=== PATIENT | male | born 1990 | race Caucasian/White ===

== ENCOUNTER 2016-11-21 23:35 | Emergency (ER) | payer BC ==
[2016-11-21 23:46] VITALS: TEMP 98.7
[2016-11-22] MEDS ORDERED: ONDANSETRON 4 MG/2 ML VIAL IVP STA ×2 (00:10→03:40)
[2016-11-22] MEDS ORDERED: LORazepam 2 MG/ML SYRINGE IV STA ×2 (00:10→03:40)
[2016-11-22 01:15] LABS: ALT 54 U/L (21-72); AST 39 U/L (17-59); Alkaline Phosphatase 100 U/L (38-126); Anion Gap 25 mmol/L; Blood Urea Nitrogen 18 mg/dL (9-20); Calcium 11.8 mg/dL (8.4-10.2); Carbon Dioxide 22 mmol/L (22-30); Chloride 96 mmol/L (98-107); Glucose 119 mg/dL (74-99); Non-African American GFR(MDRD) >60 (>60 ml/min/1.73 sqM); Potassium 4.5 mmol/L (3.5-5.1); Sodium 143 mmol/L (137-145); Total Bilirubin 2.6 mg/dL (0.2-1.3)
[2016-11-22 01:27] LABS: CH 30.3; CHCM 35.9; HCT 54.7 % (39.0-53.0); HDW 2.73; HGB 19.1 gm/dL (13.0-17.5); MCH 29.6 pg (25.0-35.0); MCHC 34.9 g/dL (31.0-37.0); MCV 84.7 fL (80.0-100.0); Mean Platelet Volume 7.1; RBC 6.46 m/uL (4.30-5.90); RDW 12.6 % (11.5-15.5); WBC (Perox) 12.47
[2016-11-22 01:28] LABS: Total Protein 12.2 g/dL (6.3-8.2)
[2016-11-22] MEDS ORDERED: SODIUM CHLORIDE 0.9% 2,000 ML IV ONE (01:28)
[2016-11-22 01:42] LABS: Add Differential Manual Differential
[2016-11-22 01:44] LABS: Manual Review Performed; Nucleated Red Blood Cells 0 /100 WBC (0-0); Total Cells Counted 100
[2016-11-22 01:45] LABS: RBC Morphology Normal
[2016-11-22] MEDS ORDERED: SODIUM CHLORIDE 0.9% 500 ML IV STA (01:52)
--- NOTE | 2016-11-22 02:13 | CT ---
EXAM: CT Head Without Intravenous Contrast. CLINICAL HISTORY: Reason: altered mental status TECHNIQUE: Axial computed tomography images of the head/brain without intravenous contrast. CTDI is 60 3. MGy and DLP is 1126.50 mGy-cm COMPARISON: None FINDINGS: Brain: No acute infarct or hemorrhage. No extra-axial fluid collection. No mass effect or midline shift. Ventricles and sulci: Normal. No ventriculomegaly or intraventricular hemorrhage. Skull: Normal. No bony lesion or fracture. Subcutaneous tissues: Normal. Sinuses: Small amount of fluid versus mucosal thickening in the left glenoid sinus. Mastoid air cells: Normal. Orbits: Grossly unremarkable. IMPRESSION: No acute intracranial abnormality.
--- NOTE | 2016-11-22 02:26 | XR ---
EXAM: XR Chest, 1 View. CLINICAL HISTORY: Reason: altered mental status TECHNIQUE: Frontal view of the chest. COMPARISON: None FINDINGS: Hardware: None. Lungs/pleura: Normal. No focal consolidation. No pleural effusion or pneumothorax. Heart/mediastinum: Normal. No cardiomegaly. Soft tissues: Unremarkable. Bones: No acute fracture. Upper abdomen: Normal. IMPRESSION: No acute disease.
[2016-11-22 03:02] LABS: Glucose,Whole Blood 91 mg/dL (75-99)
[2016-11-22 03:27] VITALS: BP 155/89; RESP 14
[2016-11-22 03:33] LABS: Appearance,Urine Clear (Clear); Bilirubin,Urine Negative (Negative); Glucose,Urine (UA) Negative (Negative); Ketones,Urine 2+ (Negative); Leukocyte Esterase,Urine Negative (Negative); Mucus,Urine Occasional /hpf; Nitrite,Urine Negative (Negative); PH, Urine 8.5 (5.0-8.0); Particle Count 4671; Protein,Urine 1+ (Negative); RBC,Urine <1 /hpf (0-5); Specific Gravity,Urine 1.022 (1.001-1.035); Squamous Epithelial Cell,Urine <1 /hpf (0-4); UA Billing (MACRO vs. MICRO) MICRO
[2016-11-22 03:49] VITALS: PULSE 64
--- NOTE | 2016-11-22 03:56 | ED ---
Nausea/Vomiting/Diarrhea HPI - General Chief complaint: Abdominal Pain Stated complaint: Heroin Withdrawl (4 days) Time Seen by Provider: 11/22/16 00:04 Source: patient Mode of arrival: ambulatory Limitations: no limitations - History of Present Illness Initial comments: This patient is a 26-year-old man at to be evaluated for nausea, vomiting, and mental status changes. History initially was from the patient's mother who states she was concerned because the patient was having a lot of vomiting, including some clear yellow vomiting. She then noticed that the patient was talking but not necessarily making sense, making references to having put his medication and the oven at one point. The patient initially was disoriented, however after arousing the patient he was able to state who he was, where he was at, and to give his complaint as vomiting and withdrawal. Patient notes that he had run out of his benzodiazepine medication. MD complaint: nausea, vomiting, other Onset/Timin -: days(s) Description of Vomiting: watery Associated Abdominal Pain: No Improves with: none Worsens with: none - Related Data Home Medications Medication Instructions Recorded Confirmed clonazePAM [Clonazepam] 1 mg PO TID 01/21/16 11/21/16 QUEtiapine [SEROquel] 1 tab PO HS 03/24/16 11/21/16 Previous Rx's Medication Instructions Recorded cloNIDine HCL [Catapres] 0.1 mg PO BID #20 tab 03/24/16 Allergies Allergy/AdvReac Type Severity Reaction Status Date / Time Penicillins Allergy Rash/Hives Verified 11/21/16 23:46 Review of Systems ROS Statement: Those systems with pertinent positive or pertinent negative responses have been documented in the HPI. ROS Other: All systems not noted in ROS Statement are negative. Limitations: ROS unobtainable due to patients medical condition Constitutional: Reports: weakness. Denies: fever, chills Eyes: Denies: vision change Respiratory: Denies: cough, dyspnea Cardiovascular: Denies: chest pain Gastrointestinal: Reports: nausea, vomiting, diarrhea. Denies: abdominal pain Genitourinary: Denies: dysuria Musculoskeletal: Denies: back pain Skin: Denies: rash Neurological: Reports: weakness. Denies: headache Past Medical History Additional Past Medical History / Comment(s): elevated liver enzymes, migraines History of Any Multi-Drug Resistant Organisms: None Reported Past Surgical History: Adenoidectomy, Tonsillectomy Additional Past Surgical History / Comment(s): sinus sx Past Psychological History: Anxiety, Depression Smoking Status: Current every day smoker Past Alcohol Use History: None Reported Past Drug Use History: None Reported General Exam Limitations: no limitations General appearance: obtunded Head exam: Present: atraumatic, normocephalic Eye exam: Present: normal appearance. Absent: scleral icterus, conjunctival injection ENT exam: Present: mucous membranes dry Neck exam: Present: normal inspection Respiratory exam: Present: normal lung sounds bilaterally. Absent: respiratory distress, wheezes, rales, rhonchi Cardiovascular Exam: Present: regular rate, normal rhythm, normal heart sounds. Absent: systolic murmur, diastolic murmur, rubs, gallop GI/Abdominal exam: Present: soft, hypoactive bowel sounds. Absent: distended, tenderness, guarding, rebound, mass Extremities exam: Present: normal inspection, normal capillary refill. Absent: pedal edema, calf tenderness Back exam: Present: normal inspection. Absent: CVA tenderness (R), CVA tenderness (L) Neurological exam: Present: altered, oriented X3, CN II-XII intact. Absent: motor sensory deficit Skin exam: Present: warm, dry, intact, pallor. Absent: rash Course Vital Signs 11/21/16 11/22/16 11/22/16 23:39 03:26 03:48 Temperature 98.7 F Pulse Rate 69 62 64 Respiratory 16 14 14 Rate Blood Pressure 153/92 155/89 O2 Sat by Pulse 100 99 100 Oximetry Procedures - Sepsis Sepsis Focused Exam #1 Capillary Refill: < 2 Seconds: Fingers Peripheral Pulses: Normal: Radial (R) Skin Color: Normal for Patient Respiratory Exam: normal lung sounds Cardiovascular Exam: regular rate, normal rhythm Medical Decision Making - Medical Decision Making Subsequent to the initial history and physical, I did have private conversations with the patient and he admitted to having a relapse of his substance use. He stated that he had used heroin because a friend of his had. Patient also admits to having smoked some cocaine. He did state that he now feels that he needs to go into a rehab, and that he has looked into this. He was denying any complaints after he received IV fluids and the antiemetics. We discussed that he should return here if he should have any further difficulty. He does contract for safety and is not having any suicidal ideation at the moment. - Lab Data Result diagrams: 11/22/16 00:56 11/22/16 00:56 Lab Results 11/22/16 11/22/16 11/22/16 Range/Units 00:56 00:56 00:56 WBC 12.0 H (3.8-10.6) k/uL RBC 6.46 H (4.30-5.90) m/uL Hgb 19.1 H (13.0-17.5) gm/dL Hct 54.7 H (39.0-53.0) % MCV 84.7 (80.0-100.0) fL MCH 29.6 (25.0-35.0) pg MCHC 34.9 (31.0-37.0) g/dL RDW 12.6 (11.5-15.5) % Plt Count 471 H (150-450) k/uL Neutrophils % (Manual) 89.0 % Lymphocytes % (Manual) 5.0 % Monocytes % (Manual) 6.0 % Neutrophils # (Manual) 10.7 H (1.3-7.7) k/uL Lymphocytes # (Manual) 0.6 L (1.0-4.8) k/uL Monocytes # (Manual) 0.7 (0-1.0) k/uL Nucleated RBCs 0 (0-0) /100 WBC Manual Slide Review Performed RBC Morphology Normal Sodium 143 (137-145) mmol/L Potassium 4.5 (3.5-5.1) mmol/L Chloride 96 L (98-107) mmol/L Carbon Dioxide 22 (22-30) mmol/L Anion Gap 25 mmol/L BUN 18 (9-20) mg/dL Creatinine 1.07 (0.66-1.25) mg/dL Est GFR (MDRD) Af Amer >60 (>60 ml/min/1.73 sqM) Est GFR (MDRD) Non-Af >60 (>60 ml/min/1.73 sqM) Glucose 119 H (74-99) mg/dL POC Glucose (mg/dL) (75-99) mg/dL POC Glu Gallery Host ID Plasma Lactic Acid Zacarias 3.3 H* (0.7-2.0) mmol/L Calcium 11.8 H (8.4-10.2) mg/dL Total Bilirubin 2.6 H (0.2-1.3) mg/dL AST 39 (17-59) U/L ALT 54 (21-72) U/L Alkaline Phosphatase 100 (38-126) U/L Total Protein 12.2 H (6.3-8.2) g/dL Albumin 5.9 H (3.5-5.0) g/dL Urine Color Urine Appearance (Clear) Urine pH (5.0-8.0) Ur Specific [place] (1.001-1.035) Urine Protein (Negative) Urine Glucose (UA) (Negative) Urine Ketones (Negative) Urine Blood (Negative) Urine Nitrite (Negative) Urine Bilirubin (Negative) Urine Urobilinogen (<2.0) mg/dL Ur Leukocyte Esterase (Negative) Urine RBC (0-5) /hpf Ur Squamous Epith Cells (0-4) /hpf Urine Mucus (None) /hpf Urine Opiates Screen (NotDetected) Ur Oxycodone Screen (NotDetected) Urine Methadone Screen (NotDetected) Ur Propoxyphene Screen (NotDetected) Ur Barbiturates Screen (NotDetected) U Tricyclic Antidepress (NotDetected) Ur Phencyclidine Scrn (NotDetected) Ur Amphetamines Screen (NotDetected) U Methamphetamines Scrn (NotDetected) U Benzodiazepines Scrn (NotDetected) Urine Cocaine Screen (NotDetected) U Marijuana (THC) Screen (NotDetected) 11/22/16 11/22/16 11/22/16 Range/Units 02:59 03:10 03:10 WBC (3.8-10.6) k/uL RBC (4.30-5.90) m/uL Hgb (13.0-17.5) gm/dL Hct (39.0-53.0) % MCV (80.0-100.0) fL MCH (25.0-35.0) pg MCHC (31.0-37.0) g/dL RDW (11.5-15.5) % Plt Count (150-450) k/uL Neutrophils % (Manual) % Lymphocytes % (Manual) % Monocytes % (Manual) % Neutrophils # (Manual) (1.3-7.7) k/uL Lymphocytes # (Manual) (1.0-4.8) k/uL Monocytes # (Manual) (0-1.0) k/uL Nucleated RBCs (0-0) /100 WBC Manual Slide Review RBC Morphology Sodium (137-145) mmol/L Potassium (3.5-5.1) mmol/L Chloride (98-107) mmol/L Carbon Dioxide (22-30) mmol/L Anion Gap mmol/L BUN (9-20) mg/dL Creatinine (0.66-1.25) mg/dL Est GFR (MDRD) Af Amer (>60 ml/min/1.73 sqM) Est GFR (MDRD) Non-Af (>60 ml/min/1.73 sqM) Glucose (74-99) mg/dL POC Glucose (mg/dL) 91 (75-99) mg/dL POC Glu Gallery Host ID Plasma Lactic Acid [place] 1.0 (0.7-2.0) mmol/L Calcium (8.4-10.2) mg/dL Total Bilirubin (0.2-1.3) mg/dL AST (17-59) U/L ALT (21-72) U/L Alkaline Phosphatase (38-126) U/L Total Protein (6.3-8.2) g/dL Albumin (3.5-5.0) g/dL Urine Color Yellow Urine Appearance Clear (Clear) Urine pH 8.5 H (5.0-8.0) Ur Specific [place] 1.022 (1.001-1.035) Urine Protein 1+ H (Negative) Urine Glucose (UA) Negative (Negative) Urine Ketones 2+ H (Negative) Urine Blood Negative (Negative) Urine Nitrite Negative (Negative) Urine Bilirubin Negative (Negative) Urine Urobilinogen 2.0 (<2.0) mg/dL Ur Leukocyte Esterase Negative (Negative) Urine RBC <1 (0-5) /hpf Ur Squamous Epith Cells <1 (0-4) /hpf Urine Mucus Occasional H (None) /hpf Urine Opiates Screen Detected H (NotDetected) Ur Oxycodone Screen Not Detected (NotDetected) Urine Methadone Screen Not Detected (NotDetected) Ur Propoxyphene Screen Not Detected (NotDetected) Ur Barbiturates Screen Not Detected (NotDetected) U Tricyclic Antidepress Detected H (NotDetected) Ur Phencyclidine Scrn Not Detected (NotDetected) Ur Amphetamines Screen Not Detected (NotDetected) U Methamphetamines Scrn Not Detected (NotDetected) U Benzodiazepines Scrn Detected H (NotDetected) Urine Cocaine Screen Detected H (NotDetected) U Marijuana (THC) Screen Detected H (NotDetected) - EKG Data EKG shows normal: sinus rhythm, axis (Normal), intervals (Prolonged QT), QRS complexes (Normal) Rate: normal (Rate 69 bpm) When compared to previous EKG there are: other Disposition Clinical Impression: Withdrawal from opioids, Withdrawal from benzodiazepine, Dehydration Disposition: HOME SELF-CARE Condition: Fair Instructions: Dehydration (ED), Opioid Withdrawal (ED) Referrals: Kirby Ozuna MD [Primary Care Provider] - 1-2 days
== END 2016-11-22 04:33 | disposition home or self-care (01) ==
LOC: EC 23:35
DX: F11.23 Opioid dependence with withdrawal (principal); F13.230 Sedative, hypnotic or anxiolytic dependence with withdrawal, uncomplicated; E86.0 Dehydration; F41.9 Anxiety disorder, unspecified; F32.9 Major depressive disorder, single episode, unspecified; F17.200 Nicotine dependence, unspecified, uncomplicated; Z79.899 Other long term (current) drug therapy; Z88.0 Allergy status to penicillin
CPT/HCPCS: 96376 ×3; 96361 ×2; 96374 ×2; 96375 ×2; 99284 ×2; 36415; 93005; 80053; 83605; 85025; 81001; 87040; 80306; 71010; 70450; J2060; J2405

== ENCOUNTER 2016-11-22 15:10 | Emergency (ER) | payer BC ==
[2016-11-22 15:20] VITALS: RESP 18
[2016-11-22] MEDS ORDERED: ONDANSETRON ODT 4 MG TAB PO STA (15:59)
[2016-11-22] MEDS ORDERED: DICYCLOMINE 10 MG/ML 2 ML AMP IM STA (16:00)
[2016-11-22] MEDS ORDERED: cloNIDine 0.2 MG/24HR PATCH 1 PATCH PATCH TRANSDERM SCH (16:00)
--- NOTE | 2016-11-22 16:07 | ED ---
General Adult HPI - General Chief complaint: Recheck/Abnormal Lab/Rx Stated complaint: Withdrawls Time Seen by Provider: 11/22/16 15:49 Source: patient Mode of arrival: EMS Limitations: no limitations - History of Present Illness Initial comments: Patient is a 26-year-old male presenting with heroin withdrawal. Per mom she suspects that patient last used 4-5 days ago. Patient states he does not know the last time he used heroin. Patient was seen yesterday for nausea and vomiting with mental status changes. Patient continues to vomit yellow/clear vomitus. Patient was discharged yesterday in stable condition. Mother states patient continues to vomiting since discharge. She tried Dramamine without relief. - Related Data Home Medications Medication Instructions Recorded Confirmed ALPRAZolam [Xanax] 1 mg PO BID@0700,1200 11/22/16 11/22/16 ALPRAZolam [Xanax] 1.5 mg PO HS 11/22/16 11/22/16 Dextroamphetamine/Amphetamine 30 mg PO BID 11/22/16 11/22/16 [Adderall] FLUoxetine HCL [PROzac] 10 mg PO DAILY 11/22/16 11/22/16 FLUoxetine HCL [PROzac] 20 mg PO DAILY 11/22/16 11/22/16 QUEtiapine [SEROquel] 50 mg PO HS 11/22/16 11/22/16 QUEtiapine [SEROquel] 100 mg PO HS 11/22/16 11/22/16 Previous Rx's Medication Instructions Recorded Dicyclomine [Bentyl] 20 mg PO QID #20 tablet 11/22/16 Naloxone [Narcan] 2 mg IJ ONCE #1 syringe 11/22/16 Ondansetron [Zofran ODT] 4 mg PO Q8HR #14 tab 11/22/16 Allergies Allergy/AdvReac Type Severity Reaction Status Date / Time Penicillins Allergy Rash/Hives Verified 11/22/16 15:51 Review of Systems ROS Statement: Those systems with pertinent positive or pertinent negative responses have been documented in the HPI. Constitutional: No fever and no chills. + Bodyaches HENT: No congestion, +rhinorrhea and no sore throat. Eyes: No discharge and no redness. Respiratory: No cough and no shortness of breath. Cardiovascular: No chest pain and no palpitations. Gastrointestinal: +nausea, +vomiting, +abdominal pain and no diarrhea. Genitourinary: No dysuria and no hematuria. Musculoskeletal: No back pain and no arthralgias. Skin: No pallor and no rash. Neurological: No dizziness and No headaches. ROS Other: All systems not noted in ROS Statement are negative. Past Medical History Additional Past Medical History / Comment(s): elevated liver enzymes, migraines History of Any Multi-Drug Resistant Organisms: None Reported Past Surgical History: Adenoidectomy, Tonsillectomy Additional Past Surgical History / Comment(s): sinus sx Past Psychological History: Anxiety, Depression Smoking Status: Current every day smoker Past Alcohol Use History: None Reported Past Drug Use History: Cocaine, Heroin, Marijuana General Exam - General Exam Comments Initial Comments: Constitutional: Patient appears well-developed and well-nourished. Moderate distress. Head: Normocephalic and atraumatic. Eyes: Conjunctivae and EOM are normal. Right eye exhibits no discharge. Left eye exhibits no discharge. No scleral icterus. Neck: Normal range of motion. Neck supple. Cardiovascular: Normal rate and regular rhythm. No murmur heard. Pulmonary/Chest: Effort normal and breath sounds normal. No respiratory distress. No wheezes. Abdominal: Soft. No distension. There is no tenderness. There is no rebound and no guarding. Musculoskeletal: Normal range of motion. No edema or tenderness. Neurological: Patient alert and oriented to person, place, and time. Skin: Skin is warm and dry. Not diaphoretic. Nursing notes and vitals reviewed. Limitations: no limitations Course Vital Signs 11/22/16 11/22/16 11/22/16 15:16 16:39 17:46 Temperature 97.9 F 98.6 F 98.0 F Pulse Rate 63 57 L 61 Respiratory 18 18 18 Rate Blood Pressure 132/74 146/69 150/85 O2 Sat by Pulse 99 98 100 Oximetry - Reevaluation(s) Reevaluation #1: Patient medicated and later feeling better. No further vomiting. Patient appears in no distress. Medical Decision Making - Medical Decision Making Patient is a 26-year-old presenting with heroin withdrawal. Patient states he last injected 4 days ago. Patient was seen last night and hydrated up do to dehydration. Patient was given clonidine patch, Zofran, Bentyl improvement of symptoms. Patient was discharged with a Zofran ODT pack, prescription for Zofran, Narcan autoinjector, and Bentyl. Instructed patient and mother to use the Zofran every 8 hours and no more. Instructed patient to follow-up with Narcotics Anonymous and substance abuse counseling. Prior to discharge, patient was resting comfortably in bed. Course of stay improved. Denies pain. Discussed physical exam and diagnostic tests with patient. Questions answered and patient is agreeable to discharge with close follow up with Primary Care Physician. Instructed to return to Emergency Department if symptoms worsen. Disposition Clinical Impression: Opiate addiction, Nausea & vomiting Disposition: HOME SELF-CARE Condition: Good Instructions: Narcotic Abuse (ED) Prescriptions: Ondansetron [Zofran ODT] 4 mg PO Q8HR #14 tab Dicyclomine [Bentyl] 20 mg PO QID #20 tablet Naloxone [Narcan] 2 mg IJ ONCE #1 syringe Referrals: Kirby Ozuna MD [Primary Care Provider] - 1-2 days
[2016-11-22] MEDS ORDERED: ONDANSETRON 4 MG ODT STARTER PACK 2 TAB BTL PO STA (17:40)
[2016-11-22 17:47] VITALS: BP 150/85; PULSE 61; TEMP 98
== END 2016-11-22 17:51 | disposition home or self-care (01) ==
LOC: EC 15:10
DX: F11.20 Opioid dependence, uncomplicated (principal); R11.2 Nausea with vomiting, unspecified; F32.9 Major depressive disorder, single episode, unspecified; F41.9 Anxiety disorder, unspecified; F17.200 Nicotine dependence, unspecified, uncomplicated; Z79.899 Other long term (current) drug therapy; Z88.0 Allergy status to penicillin
CPT/HCPCS: 99284; 96372; J0500; S0119

== ENCOUNTER 2017-03-10 01:12 | Emergency (ER) | payer OTHER ==
[2017-03-10] MEDS ORDERED: DIPH,PERTUS(ACELL)TETVAC-LF 0.5 ML VIAL IM ONE (01:15)
[2017-03-10] MEDS ORDERED: SODIUM CHLORIDE 0.9% 1,000 ML IV STA (01:15)
[2017-03-10] MEDS ORDERED: fentaNYL (PF) 50 MCG/ML 2 ML AMP IV STA (01:16)
[2017-03-10 01:25] LABS: Glucose,Whole Blood 128 mg/dL (75-99)
[2017-03-10 01:45] LABS: Basophils % (A) 0 %; CHCM 34.9; Eosinophils # (A) 0.1 k/uL (0-0.7); Eosinophils % (A) 1 %; HCT 42.3 % (39.0-53.0); HDW 2.72; HGB 14.7 gm/dL (13.0-17.5); Luc % (Auto) 1; Lymphocytes # (A) 1.1 k/uL (1.0-4.8); Lymphocytes % (A) 10 %; MCH 30.9 pg (25.0-35.0); MCHC 34.6 g/dL (31.0-37.0); MCV 89.3 fL (80.0-100.0); Mean Platelet Volume 7.4; Monocytes # (A) 0.5 k/uL (0-1.0); Monocytes % (A) 5 %; Neutrophils % (A) 83 %; RBC 4.74 m/uL (4.30-5.90); RDW 13.2 % (11.5-15.5); WBC 10.8 k/uL (3.8-10.6); WBC (Perox) 9.96
[2017-03-10 01:52] LABS: ALT 62 U/L (21-72); AST 28 U/L (17-59); Alcohol <10 mg/dL; Alkaline Phosphatase 67 U/L (38-126); Amylase 55 U/L (30-110); Anion Gap 11 mmol/L; Blood Urea Nitrogen 14 mg/dL (9-20); Calcium 7.7 mg/dL (8.4-10.2); Carbon Dioxide 25 mmol/L (22-30); Chloride 107 mmol/L (98-107); Glucose 116 mg/dL (74-99); Non-African American GFR(MDRD) >60 (>60 ml/min/1.73 sqM); Potassium 3.7 mmol/L (3.5-5.1); Sodium 143 mmol/L (137-145); Total Bilirubin 0.3 mg/dL (0.2-1.3); Total Protein 6.5 g/dL (6.3-8.2)
[2017-03-10 01:55] LABS: INR 1.2 (<1.1); Partial Thromboplastin Time 25.9 sec (22.0-30.0)
[2017-03-10 02:04] LABS: Creatine Kinase 34 U/L (55-170)
[2017-03-10 02:17] LABS: Creatine Kinase MB <0.2 ng/mL (0.0-2.4); Troponin I <0.012 ng/mL (0.000-0.034)
--- NOTE | 2017-03-10 02:19 | XR ---
CXR 1 View INDICATION: trauma COMPARISON: Chest x-ray 11/22/16 FINDINGS: Single frontal view of the chest. The cardiac silhouette appears more prominent since prior examination, nonspecific. No evidence for focal consolidation. Haziness at the bilateral lung bases may be atelectasis. No evidence for pleural effusion. No definite evidence for pneumothorax. No evidence for acute displaced fractures. There are overlying leads. IMPRESSION: 1. No definite evidence for a pneumothorax or consolidation. 2. Cardiac silhouette appears more prominent since prior examination which may be related to technique.
--- NOTE | 2017-03-10 02:22 | XR ---
Pelvis 1 view INDICATION: Trauma. COMPARISON: None FINDINGS: No evidence for acute displaced fracture. Limited visualization of the sacrum due to bowel. Bone mineralization and joint spaces are preserved. IMPRESSION: No evidence for acute displaced fracture.
[2017-03-10 02:51] VITALS: RESP 18
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
--- NOTE | 2017-03-10 03:24 | CT ---
CT Head without contrast INDICATION: trauma TECHNIQUE: Multiple axial cuts of the brain are obtained from the posterior fossa to the cranial vault. Sagittal and coronal reformatted images provided. No IV contrast is administered. Radiation dose: CTDIvol: 57.4 mGy DLP: 1098.8 mGy-cm COMPARISON: none FINDINGS: There is a questionable ill defined 2 mm hyperdensity over the posterior left temporal lobe series 10 image 39. No definite evidence for acute intracranial hemorrhage, hydrocephalus, or herniation. The pascal white differentiation appears grossly intact. Left periorbital and frontal scalp soft tissue swelling. There is a 5 mm low attenuation focus in the inferior sella. No evidence of a depressed calvarial fracture. IMPRESSION: 1. Questionable ill defined 2 mm hyperdensity over the linen checker left temporal lobe. This may represent a small extra axial hematoma vs. artifact. Otherwise no evidence for acute intracranial hemorrhage, hydrocephalus, or herniation. 2. Suspicion for a 5 mm low attenuation focus in the inferior sella, nonspecific and may represent a rathke's cleft cyst. Further evaluation by an MRI of the pituitary gland may be helpful. CT Cervical spine without contrast INDICATION: Trauma TECHNIQUE: Multiple, contiguous axial cuts of the cervical spine are obtained from the skull base to the thoracic inlet. Sagittal and coronal reformatted images provided. No IV contrast is administered. Radiation dose: CTDIvol: 21.3 mGy DLP: 364.5 mGy-cm COMPARISON: None FINDINGS: No evidence for acute fracture the cervical spine. No evidence for prevertebral edema. Soft tissues are grossly unremarkable. Mild straightening of the normal cervical lordosis. IMPRESSION: No evidence for acute fracture of the cervical spine.
[2017-03-10 03:31] VITALS: BP 113/54; PULSE 110; TEMP 98.7
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
--- NOTE | 2017-03-10 03:55 | CT ---
CT Chest and abdomen with contrast INDICATION: Trauma TECHNIQUE: Multiple, contiguous axial cuts of the chest, abdomen, and plevis are obtained following the administration of IV contrast. Sagittal and coronal reformatted images are available. Radiation dose: CTDIvol: 16.1 mGy DLP: 1165.3 mGy-cm COMPARISON: None FINDINGS: Chest: The examination is limited by motion. Atelectasis of the bilateral lung bases. Small bilateral pleural effusions. There is air attenuation focus adjacent to the right liver dome, suspicious for the small pneumothorax. The aorta is within normal limits, no aneurysm or dissection. The cardiomediastinal structures are normal. At the right aspect of the superior endplate of T8, there is a irregular deformity with subtle adjacent sclerosis and mild right lateral height loss. Nodular low attenuation focus in the right behavioral services tech aspect of the trachea may represent a secretion or a cyst. Continued attention on followup is recommended. Abdomen/pelvis: Examination is limited by motion and artifact at the upper abdomen limiting evaluation,. The liver appears normal in size. The spleen is enlarged measuring up to 17 cm in craniocaudal dimension. The gallbladder, bile ducts and pancreas are grossly normal. The adrenal gland are unremarkable. The kidneys are normal in size and contour. No lesion or hydronephrosis. The appendix is unremarkable. No evidence for bowel obstruction. Aorta is normal caliber. No adenopathy. No acute osseous findings. IMPRESSION: 1. Possible small pneumothorax in the right lower chest. Small bilateral pleural effusion. 2. At the right aspect of the superior endplate of T8, there is an irregular deformity with subtle adjacent sclerosis. This finding is nonspecific however please correlate for point tenderness. 3. No definite acute intra-abdominal finding. 4. Splenomegaly.
== END 2017-03-10 03:31 | disposition short-term general hospital (02) ==
LOC: EC 01:12
DX: S06.9X9A Unspecified intracranial injury with loss of consciousness of unspecified duration, initial encounter (principal); S00.81XA Abrasion of other part of head, initial encounter; S40.811A Abrasion of right upper arm, initial encounter; S40.812A Abrasion of left upper arm, initial encounter; R00.0 Tachycardia, unspecified; M54.2 Cervicalgia; F32.9 Major depressive disorder, single episode, unspecified; F41.9 Anxiety disorder, unspecified; F17.200 Nicotine dependence, unspecified, uncomplicated; Z79.899 Other long term (current) drug therapy; Z88.0 Allergy status to penicillin; Z23 Encounter for immunization; V47.5XXA Car driver injured in collision with fixed or stationary object in traffic accident, initial encounter; Y92.410 Unspecified street and highway as the place of occurrence of the external cause; Y93.89 Activity, other specified
CPT/HCPCS: 36415; 70450; 70486; 71010; 71260; 72125; 72170; 74177; 80053; 80320; 82150; 82550; 82553; 83605; 83690; 84484; 85025; 85610; 85730; 86850; 86900; 86901; 90471; 90715; 93005; 99285

== ENCOUNTER → 2018-04-10 | Outpatient (CLI) | payer OTHER ==
[2018-04-10 12:33] LABS: Prothrombin Time 9.9 sec (9.0-12.0)
[2018-04-10 12:34] LABS: Albumin 4.7 g/dL (3.5-5.0); Bilirubin, Delta 0.2 mg/dL (0.0-0.2); Bilirubin,Unconjugated 0.5 mg/dL (0.0-1.1); Total Bilirubin 0.7 mg/dL (0.2-1.3); Total Protein 7.5 g/dL (6.3-8.2)
--- NOTE | 2018-04-10 14:08 | US ---
EXAMINATION TYPE: US liver DATE OF EXAM: 04/10/2018 COMPARISON: NONE CLINICAL HISTORY: 27-year-old male B18.2 Chronic Hepatitis C. Chronic viral hepatitis TECHNIQUE: Multiple sonographic images of the right upper quadrant are obtained. FINDINGS: EXAM MEASUREMENTS: Liver Length: 14.9 cm Gallbladder Wall: 0.3 cm CBD: 2.7 mm Right Kidney: 9.6 x 4.8 x 5.3 cm Skein Winder notes:Technical limitations due to large amount of overlying bowel content Pancreas: Obscured by bowel gas Liver: Overall homogeneous echotexture without focal lesion. Gallbladder: No abnormal distention, wall thickening, pericholecystic fluid, or shadowing calculi. Evidence for sonographic Hilton's sign: no CBD: wnl Right Kidney: no evidence of hydronephrosis IMPRESSION: Suboptimal visualization of the pancreas. Otherwise, unremarkable sonographic examination of the righ t upper quadrant.
[2018-04-12 14:03] LABS: HCV Quant Log 4.85 (<1.08)
== END | disposition home or self-care (01) ==
LOC: RADUSWWP 11:04
DX: B18.2 Chronic viral hepatitis C (principal)
CPT/HCPCS: 36415; 76705; 80076; 85610; 87522

== ENCOUNTER → 2019-07-17 | Outpatient (CLI) | payer OTHER ==
[2019-07-17 17:36] LABS: Basophils # (A) 0.1 k/uL (0-0.2); Basophils % (A) 1 %; Eosinophils # (A) 0.2 k/uL (0-0.7); Eosinophils % (A) 3 %; HCT 49.8 % (39.0-53.0); HGB 16.9 gm/dL (13.0-17.5); Lymphocytes # (A) 1.2 k/uL (1.0-4.8); Lymphocytes % (A) 24 %; MCH 30.5 pg (25.0-35.0); MCHC 33.9 g/dL (31.0-37.0); MCV 89.8 fL (80.0-100.0); Mean Platelet Volume 6.7; Monocytes # (A) 0.4 k/uL (0-1.0); Monocytes % (A) 8 %; Neutrophils % (A) 62 %; Platelet Count 213 k/uL (150-450); RBC 5.54 m/uL (4.30-5.90); RDW 12.8 % (11.5-15.5); WBC 4.8 k/uL (3.8-10.6)
[2019-07-18 01:02] LABS: Hemoglobin A1C 4.5 % (4.0-6.0)
[2019-07-18 01:06] LABS: HIV 1 AB Non-Reactive (Non-Reactive); HIV 2 AB Non-Reactive (Non-Reactive); HIV AB P24 Non-Reactive (Non-Reactive); HIV P24 AG Non-Reactive (Non-Reactive)
[2019-07-18 01:47] LABS: T4, Free (Free Thyroxine) 0.9 ng/dL (0.80-1.80)
[2019-07-18 02:00] LABS: African American GFR (CKD) 141.9 (60.0-200.0); Albumin 4.7 g/dL (3.80-4.90); Albumin/Globulin Ratio 1.96 (1.60-3.17); Anion Gap 8.5 mmol/L (4.00-12.00); BUN/Creat Ratio 12.5 Ratio (12.00-20.00); Calcium 9.3 mg/dL (8.7-10.3); Carbon Dioxide 27.5 mmol/L (21.6-31.8); Chol/HDL Ratio 2.24; Globulin 2.4 g/dL (1.6-3.3); LDL Cholesterol,Calculated 53.2 mg/dL (0.0-131.0); Potassium 4.6 mmol/L (3.5-5.5); Total Bilirubin 0.4 mg/dL (0.2-1.2); Total Protein 7.1 g/dL (6.2-8.2); VLDL Calculation 13.8 mg/dL (5.00-40.00)
== END | disposition home or self-care (01) ==
LOC: LABWHC1 16:57
PROVIDERS: ATTEND Nurse Practitioner
DX: I49.9 Cardiac arrhythmia, unspecified (principal); I10 Essential (primary) hypertension; Z79.899 Other long term (current) drug therapy
CPT/HCPCS: 36415; 80053; 80061; 82306; 82607; 83036; 83735; 84439; 84443; 85025; 87390

== ENCOUNTER → 2019-09-20 | Outpatient (CLI) | payer OTHER ==
[2019-09-20 20:03] LABS: T4, Free (Free Thyroxine) 1.2 ng/dL (0.80-1.80)
[2019-09-20 20:06] LABS: Hemoglobin A1C 4.9 % (4.0-6.0)
[2019-09-20 20:12] LABS: African American GFR (CKD) 105.3 (60.0-200.0); Chol/HDL Ratio 2.93; LDL Cholesterol,Calculated 60.6 mg/dL (0.0-131.0); Lithium 0.4 mmol/L (0.5-1.2); Non-African American GFR(CKD) 90.9 (60.0-200.0); VLDL Calculation 22.4 mg/dL (5.00-40.00)
== END | disposition home or self-care (01) ==
LOC: LABWHC1 12:39
PROVIDERS: ATTEND Psychiatry & Neurology Psychiatry
DX: Z51.81 Encounter for therapeutic drug level monitoring (principal); Z79.899 Other long term (current) drug therapy
CPT/HCPCS: 36415; 80061; 80178; 82565; 82947; 83036; 84439; 84443; 84520

== ENCOUNTER 2019-11-23 16:26 | Emergency (ER) | payer OTHER ==
[2019-11-23 16:34] VITALS: RESP 18; TEMP 98.1
[2019-11-23] MEDS ORDERED: LORazepam 2 MG/ML INJ IV STA (16:54)
[2019-11-23] MEDS ORDERED: ORPHENADRINE 30 MG/ML 2 ML VIAL IVP STA (16:54)
[2019-11-23] MEDS ORDERED: KETOROLAC 30 MG/ML 1 ML VIAL IVP STA (16:54)
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
[2019-11-23] MEDS ORDERED: diphenhydrAMINE 50 MG/ML 1 ML VIAL IVP STA (17:42)
[2019-11-23 18:21] VITALS: BP 150/101; PULSE 89
== END 2019-11-23 18:53 | disposition home or self-care (01) ==
LOC: EC 16:26
DX: M62.838 Other muscle spasm (principal); F41.9 Anxiety disorder, unspecified; F31.9 Bipolar disorder, unspecified; F17.200 Nicotine dependence, unspecified, uncomplicated; Z79.899 Other long term (current) drug therapy; Z88.0 Allergy status to penicillin
CPT/HCPCS: 99283; 96374; 96375 ×3; J2060; J1200; J2360; J1885

== ENCOUNTER → 2020-02-13 | Outpatient (CLI) | payer OTHER ==
[2020-02-14 04:39] LABS: African American GFR (CKD) 134.2 (60.0-200.0); Lithium 0.2 mmol/L (0.5-1.2); Non-African American GFR(CKD) 115.8 (60.0-200.0)
== END | disposition home or self-care (01) ==
LOC: LABWHC1 12:24
PROVIDERS: ATTEND Psychiatry & Neurology Psychiatry
DX: Z51.81 Encounter for therapeutic drug level monitoring (principal); Z79.899 Other long term (current) drug therapy
CPT/HCPCS: 36415; 80178; 82565; 84520

== ENCOUNTER 2021-04-18 14:53 | Emergency (ER) | payer OTHER ==
[2021-04-18 15:02] VITALS: BP 138/89; PULSE 84; RESP 20; TEMP 98.9
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
== END 2021-04-18 15:50 | disposition home or self-care (01) ==
LOC: EC 14:53
DX: L02.415 Cutaneous abscess of right lower limb (principal); F31.9 Bipolar disorder, unspecified; F41.9 Anxiety disorder, unspecified; F17.290 Nicotine dependence, other tobacco product, uncomplicated; F12.90 Cannabis use, unspecified, uncomplicated; F14.90 Cocaine use, unspecified, uncomplicated; F11.90 Opioid use, unspecified, uncomplicated; Z88.0 Allergy status to penicillin; Z79.899 Other long term (current) drug therapy
CPT/HCPCS: 99282

== ENCOUNTER 2021-08-02 13:56 | Emergency (ER) | payer OTHER ==
[2021-08-02 15:07] VITALS: BP 119/79; PULSE 78; RESP 18; TEMP 98.1
[2021-08-02] MEDS ORDERED: CEPHALEXIN 500MG STARTER PACK 4 CAP BTL PO STA (17:24)
[2021-08-02] MEDS ORDERED: SULFAMETH-TMP DS STARTER PACK 2 TAB BTL PO STA (17:24)
--- NOTE | 2021-08-02 17:45 | ED ---
General Adult HPI - General Chief complaint: Skin/Abscess/Foreign Body Stated complaint: Abcess Time Seen by Provider: 08/02/21 17:08 Source: patient Mode of arrival: ambulatory Limitations: no limitations - History of Present Illness Initial comments: 30-year-old male presents to the emergency room for a chief complaint of abscess. Patient is an IV drug user. Patient states she has got several times before. Patient states it has been in for 3-4 days. Denies any fevers or chills. Denies any abdominal pain. Patient has no other complaints at this time including shortness of breath, chest pain, nausea or vomiting, headache, or visual changes. - Related Data Home Medications Medication Instructions Recorded Confirmed ALPRAZolam [Xanax] 1 mg PO BID@0700,1200 11/22/16 11/22/16 ALPRAZolam [Xanax] 1.5 mg PO HS 11/22/16 11/22/16 Dextroamphetamine/Amphetamine 30 mg PO BID 11/22/16 11/22/16 [Adderall] FLUoxetine HCL [PROzac] 10 mg PO DAILY 11/22/16 11/22/16 FLUoxetine HCL [PROzac] 20 mg PO DAILY 11/22/16 11/22/16 QUEtiapine [SEROquel] 50 mg PO HS 11/22/16 11/22/16 QUEtiapine [SEROquel] 100 mg PO HS 11/22/16 11/22/16 Previous Rx's Medication Instructions Recorded Dicyclomine [Bentyl] 20 mg PO QID #20 tablet 11/22/16 Naloxone [Narcan] 2 mg IJ ONCE #1 syringe 11/22/16 Ondansetron [Zofran ODT] 4 mg PO Q8HR #14 tab 11/22/16 Orphenadrine [Norflex] 100 mg PO Q12H #10 tablet.er 11/23/19 Cephalexin [Keflex] 500 mg PO Q6HR #40 cap 04/18/21 Sulfamethox-Tmp 800-160Mg [Bactrim 1 each PO Q12HR #20 tab 04/18/21 Ds] Cephalexin [Keflex] 500 mg PO Q6HR 10 Days #40 cap 08/02/21 Sulfamethox-Tmp 800-160Mg [Bactrim 1 tab PO Q12HR #20 tab 08/02/21 DS 800-160 mg] Allergies Allergy/AdvReac Type Severity Reaction Status Date / Time Penicillins Allergy Rash/Hives Verified 08/02/21 15:07 Review of Systems ROS Statement: Those systems with pertinent positive or pertinent negative responses have been documented in the HPI. ROS Other: All systems not noted in ROS Statement are negative. Past Medical History Additional Past Medical History / Comment(s): elevated liver enzymes, migrainesrecovering heroin addict History of Any Multi-Drug Resistant Organisms: None Reported Past Surgical History: Adenoidectomy, Tonsillectomy Additional Past Surgical History / Comment(s): sinus sx Past Psychological History: Anxiety, Bipolar, Depression Smoking Status: Vaper Past Alcohol Use History: None Reported Past Drug Use History: Cocaine, Heroin, Marijuana General Exam Limitations: no limitations General appearance: alert, in no apparent distress Head exam: Present: atraumatic Eye exam: Present: normal appearance, PERRL, EOMI. Absent: scleral icterus, conjunctival injection ENT exam: Present: normal exam, mucous membranes moist Neck exam: Present: normal inspection, full ROM. Absent: tenderness Respiratory exam: Present: normal lung sounds bilaterally. Absent: respiratory distress, wheezes Cardiovascular Exam: Present: regular rate, normal rhythm, normal heart sounds GI/Abdominal exam: Present: soft, normal bowel sounds (d), other (patient has 3 cm x 3 cm abscess to the left lower quadrant with surrounding erthema spreading laterally to patient's side.). Absent: distended, tenderness Course Vital Signs 08/02/21 15:04 Temperature 98.1 F Pulse Rate 78 Respiratory 18 Rate Blood Pressure 119/79 O2 Sat by Pulse 93 L Oximetry Procedures - Incision & Drainage Consent Obtained: verbal consent Indication: abscess Site: abdomen Size (cm): 4 I&D Cleaning Method: Chloroprep Sterile Field Used?: Yes Scalpel Used: #11 I&D Drainage Obtained: Pus Patient Tolerated Procedure: well, no complications Medical Decision Making - Medical Decision Making Abscess was drained. purulent material expelled. Patient does have moderate cellulitis to the area extending to the lateral side. Patient was also evaluated by Dr. Koch. At this time we strongly recommend admission for inpatient antibiotics however patient refuses. States he will not stay overnight. He will try oral antibiotics. He says in doing this. Patient refused for me to pack it. Patient was given IM Rocephin and started on Keflex and Bactrim. Erythema was marked with a skin marker. Strict return parameters discussed. Disposition Clinical Impression: Abscess Disposition: HOME SELF-CARE Condition: Good Instructions (If sedation given, give patient instructions): Abscess (ED) Additional Instructions: Please do warm compresses and warm baths. Take antibiotic as directed. If symptoms are worsening return to the emergency room immediately. Prescriptions: Sulfamethox-Tmp 800-160Mg [Bactrim DS 800-160 mg] 1 tab PO Q12HR #20 tab Cephalexin [Keflex] 500 mg PO Q6HR 10 Days #40 cap Is patient prescribed a controlled substance at d/c from ED?: No Referrals: Margaret Harrison MD [STAFF PHYSICIAN] - 1-2 days Time of Disposition: 17:45
[2021-08-02] MEDS ORDERED: cefTRIAXone 1,000 MG VIAL (IM USE) IM STA (18:00)
== END 2021-08-02 18:28 | disposition home or self-care (01) ==
LOC: EC 13:56
DX: L02.211 Cutaneous abscess of abdominal wall (principal); F41.9 Anxiety disorder, unspecified; F31.9 Bipolar disorder, unspecified; F17.290 Nicotine dependence, other tobacco product, uncomplicated; F12.90 Cannabis use, unspecified, uncomplicated; Z88.0 Allergy status to penicillin; Z90.89 Acquired absence of other organs
CPT/HCPCS: 99283; 96372; 10060; 87070; 87205; 87077; 87186; J0696

== ENCOUNTER → 2022-05-27 | Outpatient (CLI) | payer OTHER ==
[2022-05-27 20:33] LABS: Lithium 0.4 mmol/L (0.50-1.20)
[2022-05-27 20:39] LABS: Blood Urea Nitrogen 9.4 mg/dL (9.0-27.0)
[2022-05-27 20:40] LABS: African American GFR (CKD) 132.4 (60.0-200.0); Non-African American GFR(CKD) 114.2 (60.0-200.0)
[2022-05-27 21:33] LABS: T4, Free (Free Thyroxine) 1.13 ng/dL (0.800-1.800)
== END | disposition home or self-care (01) ==
LOC: LABWHC1 12:53
PROVIDERS: ATTEND Psychiatry & Neurology Psychiatry
DX: F31.4 Bipolar disorder, current episode depressed, severe, without psychotic features (principal); Z79.899 Other long term (current) drug therapy
CPT/HCPCS: 36415; 80178; 82565; 84439; 84443; 84520

== ENCOUNTER → 2022-09-30 | Outpatient (CLI) | payer OTHER ==
[2022-09-30 19:26] LABS: Basophils # (A) 0.06 X 10*3/uL (0.00-0.10); Basophils % (A) 0.4 %; Eosinophils # (A) 0.33 X 10*3/uL (0.04-0.35); Eosinophils % (A) 2.4 %; HGB 17.5 g/dL (13.0-17.0); Immature Grans, Automated 0.4 %; Lymphocytes # (A) 2.17 X 10*3/uL (0.90-5.00); Lymphocytes % (A) 15.8 %; MCH 31.2 pg (27.0-32.0); MCHC 33.7 g/dL (32.0-37.0); MCV 92.7 fL (80.0-97.0); Mean Platelet Volume 11.2 fL (9.5-12.2); Monocytes % (A) 7.3 %; NRBC Per 100 WBC 0 /100 WBCS (0.0-0.0); Neutrophils # (A) 10.09 X 10*3/uL (1.80-7.70); Neutrophils % (A) 73.7 %; Platelet Count 266 X 10*3/uL (140-440); RBC 5.61 X 10*6/uL (4.40-5.60); RDW 12.5 % (11.5-14.5); WBC 13.71 X 10*3/uL (4.50-10.00)
[2022-09-30 20:30] LABS: ALT 178 U/L (10-49); AST 75 U/L (14-35); African American GFR (CKD) 127.7 (60.0-200.0); Albumin 4.8 g/dL (3.8-4.9); Albumin/Globulin Ratio 1.69 (1.60-3.17); Alkaline Phosphatase 83 U/L (41-126); Blood Urea Nitrogen 11.8 mg/dL (9.0-27.0); Calcium 9.5 mg/dL (8.7-10.3); Carbon Dioxide 23.4 mmol/L (20.0-27.5); Chloride 101 mmol/L (96-109); Chol/HDL Ratio 2.57 Ratio; Globulin 2.9 g/dL (1.6-3.3); Glucose 134 mg/dL (70-110); LDL Cholesterol,Calculated 79.2 mg/dL (0.0-131.0); Magnesium 2.2 mg/dL (1.5-2.4); Non-African American GFR(CKD) 110.2 (60.0-200.0); Potassium 4.3 mmol/L (3.5-5.5); Sodium 139 mmol/L (135-145); Total Protein 7.7 g/dL (6.2-8.2)
== END | disposition home or self-care (01) ==
LOC: LABWHC1 10:35
PROVIDERS: ATTEND Nurse Practitioner
DX: R03.0 Elevated blood-pressure reading, without diagnosis of hypertension (principal); B18.2 Chronic viral hepatitis C; E55.9 Vitamin D deficiency, unspecified; Z53.9 Procedure and treatment not carried out, unspecified reason
CPT/HCPCS: 36415; 80053; 80061; 82306; 82607; 83735; 84439; 84443; 85025; 86803; 87522

== ENCOUNTER → 2022-09-30 | Outpatient (CLI) | payer OTHER ==
--- NOTE | 2022-09-30 15:17 | XR ---
EXAMINATION TYPE: XR cervical spine 5 views comp, XR thoracic spine 3 views complete DATE OF EXAM: 09/30/2022 COMPARISON: None HISTORY: 32-year-old male M5 4.2, cervicalgia and middle back pain. FINDINGS: Cervical spine: No predental space widening or prevertebral soft tissue swelling. There is straightening of the kacey l cervical lordosis with preserved alignment and disc interspaces. No significant bony neuroforaminal narrowing on either side. Thoracic spine: 12 rib bearing thoracic vertebral bodies. All pedicles are visualized. Vertebral body heights are pre served and alignment is maintained. IMPRESSION: 1. Cervical spine: Straightening of the normal cervical lordosis could be positional or due to muscle spasm. Otherwise, no specific radiographic neurology is seen. 2. Thoracic spine: No vertebral compression collapse or malalignment.
== END | disposition home or self-care (01) ==
LOC: RADXRMAIN 11:23
PROVIDERS: ATTEND Nurse Practitioner
DX: M54.2 Cervicalgia (principal)
CPT/HCPCS: 72050; 72072

== ENCOUNTER → 2022-12-10 | Outpatient (CLI) | payer OTHER ==
[2022-12-11 03:51] LABS: Basophils # (A) 0.05 X 10*3/uL (0.00-0.10); Basophils % (A) 0.6 %; Eosinophils % (A) 2.3 %; HCT 45.7 % (39.6-50.0); HGB 15.5 g/dL (13.0-17.0); Immature Grans, Automated 0.2 %; Lymphocytes # (A) 1.26 X 10*3/uL (0.90-5.00); Lymphocytes % (A) 14.6 %; MCH 31.4 pg (27.0-32.0); MCHC 33.9 g/dL (32.0-37.0); MCV 92.7 fL (80.0-97.0); Mean Platelet Volume 11.7 fL (9.5-12.2); Monocytes # (A) 0.62 X 10*3/uL (0.20-1.00); Monocytes % (A) 7.2 %; NRBC Per 100 WBC 0 /100 WBCS (0.0-0.0); Neutrophils % (A) 75.1 %; Platelet Count 195 X 10*3/uL (140-440); RBC 4.93 X 10*6/uL (4.40-5.60); RDW 11.9 % (11.5-14.5); WBC 8.65 X 10*3/uL (4.50-10.00)
[2022-12-11 04:11] LABS: Hepatitis B Surface Antigen Nonreactive (Nonreactive)
[2022-12-11 04:26] LABS: Lithium 0.5 mmol/L (0.50-1.20)
[2022-12-11 04:32] LABS: Albumin 4.7 g/dL (3.8-4.9); Albumin/Globulin Ratio 1.73 (1.60-3.17); Anion Gap 13.8 mmol/L (10.00-18.00); BUN/Creat Ratio 11.98 Ratio (12.00-20.00); Blood Urea Nitrogen 11.7 mg/dL (9.0-27.0); Calcium 9.5 mg/dL (8.7-10.3); Carbon Dioxide 25.8 mmol/L (20.0-27.5); Globulin 2.7 g/dL (1.6-3.3); Non-African American GFR(CKD) 102.7 (60.0-200.0); Potassium 4.5 mmol/L (3.5-5.5); T4, Free (Free Thyroxine) 1.17 ng/dL (0.800-1.800); Total Bilirubin 0.6 mg/dL (0.30-1.20); Total Protein 7.4 g/dL (6.2-8.2)
[2022-12-11 04:38] LABS: Hepatitis B Surface Antibody Reactive (Nonreactive)
== END | disposition home or self-care (01) ==
LOC: LABWHC1 15:34
PROVIDERS: ATTEND Psychiatry & Neurology Psychiatry
DX: B18.2 Chronic viral hepatitis C (principal); F31.4 Bipolar disorder, current episode depressed, severe, without psychotic features; Z79.899 Other long term (current) drug therapy
CPT/HCPCS: 36415; 80053; 80178; 82105; 84439; 84443; 85025; 86706; 87340; 87522

== ENCOUNTER → 2022-12-21 | Outpatient (CLI) | payer OTHER ==
--- NOTE | 2022-12-21 08:52 | US ---
EXAMINATION TYPE: US abdomen complete DATE OF EXAM: 12/21/2022 COMPARISON: 04/10/2018 ultrasound CLINICAL INDICATION: Male, 32 years old with history of B18.2 CHR VIRAL HEP C; No pain. Hep C. TECHNIQUE: Multiple sonographic images of the abdomen are obtained. FINDINGS: EXAM MEASUREMENTS: Liver Length: 18.9 cm Gallbladder Wall: 0.2 cm Spleen: 17.2 cm Right Kidney: 11.6 x 5.8 x 5.5 cm Left Kidney: 11.8 x 5.7 x 4.9 cm VP [employer] NOTES: Limited due to overlying bowel gas Pancreas: Echogenic in appearance, limited visualization. Liver: Enlarged in size. Coarse and slightly heterogenous. No evidence of mass. Gallbladder: wnl Evidence for sonographic Hilton's sign: neg CBD: Obscured by overlying bowel gas Spleen: Enlarged in size Right Kidney: No hydronephrosis or masses seen Left Kidney: No hydronephrosis or masses seen Upper IVC: wnl Abd Aorta: Limited due to bowel gas, no AAA visualized at time of scan The liver is homogenous with increased echotexture. The intrahepatic portion of the IVC and proximal abdominal aorta are within normal limits. There is no evidence of cholelithiasis. Common bile duct is unremarkable. The visualized portions of the pancreas are homogenous. The spleen is unremarkabl e. Kidneys are symmetric and free of hydronephrosis. No renal lesions are seen. IMPRESSION: Hepatocellular disease likely secondary to patient's known history of hepatitis C no suspicious mass.
== END | disposition home or self-care (01) ==
LOC: RADUSWWP 07:23
PROVIDERS: ATTEND Internal Medicine Gastroenterology
DX: B18.2 Chronic viral hepatitis C (principal)
CPT/HCPCS: 76700